=== PATIENT | female | born 1980 | race Caucasian/White ===

== ENCOUNTER 2016-07-15 10:10 | Emergency (ER) | payer MEDICAID ==
[2016-07-15] MEDS ORDERED: KETOROLAC 60 MG/2 ML VIAL IM ONE (10:57)
== END 2016-07-15 12:47 | disposition home or self-care (01) ==
LOC: ER 10:10
CPT/HCPCS: 72072; 72100; 80307; 81001; 87077; 87088; 87186; 96372